=== PATIENT | female | born 1965 | race Caucasian/White ===

== ENCOUNTER 2016-05-11 07:30 | Day surgery (SDC) | payer OTHER ==
[2016-05-06 16:17] VITALS: BMI 50.8
[~2016-05-11 07:30] MED LIST: LACTATED RINGERS 1,000 ML IV SCH
[2016-05-11 08:12] VITALS: RESP 16; TEMP 97.1
[2016-05-11] MEDS ORDERED: PROPOFOL 10 MG/ML 20 ML VIAL IV ONE (08:14)
[2016-05-11 08:24] LABS: Glucose,Whole Blood 210 mg/dL (75-99)
--- NOTE | 2016-05-11 08:33 | P.PCN ---
Date of Procedure: 05/11/16 Procedure(s) Performed: BRIEF HISTORY: Patient is a 50-year-old pleasant white female, scheduled for an elective colonoscopy as a part of evaluation of chronic diarrhea of several years duration. She was on history of irritable bowel syndrome in the past. She also has family history of colon cancer diagnosed in her grandfather at age 60. PROCEDURE PERFORMED: Colonoscopy. PREOPERATIVE DIAGNOSIS: Chronic diarrhea. IV sedation per Anesthesia. PROCEDURE: After informed consent was obtained, the patient, was brought into the endoscopy unit. IV conscious sedation was administered by Anesthesia under continuous monitoring. Digital rectal examination was normal. Initially the Olympus CF-160 flexible video colonoscope was then inserted in the rectum, gradually advanced into the cecum without any difficulty. Careful examination was performed as the scope was gradually being withdrawn. Ileocecal valve and the appendiceal orifice were visualized and appeared normal. Prep was excellent. Mucosa of the cecum, ascending colon, transverse colon, descending colon, sigmoid colon, and rectum appeared normal. Retroflexion was performed in the rectum and no lesions were seen. The patient tolerated the procedure well. IMPRESSION: Normal-appearing colon from rectum to cecum with no evidence of colorectal neoplasia. RECOMMENDATIONS: Findings of this examination were discussed with the patient as well as a family. She was advised to have a repeat screening colonoscopy in 5 years because of the family history of colon cancer..
[2016-05-11 09:03] VITALS: PULSE 88
[2016-05-11 09:24] VITALS: BP 92/62
[2016-05-11 09:33] LABS: Glucose,Whole Blood 216 mg/dL (75-99)
== END 2016-05-11 09:46 | disposition home or self-care (01) ==
LOC: ORWHC2ENDO 07:30
PROVIDERS: ATTEND Internal Medicine Gastroenterology
DX: K52.9 Noninfective gastroenteritis and colitis, unspecified (principal); I10 Essential (primary) hypertension; E78.5 Hyperlipidemia, unspecified; I25.10 Atherosclerotic heart disease of native coronary artery without angina pectoris; G47.33 Obstructive sleep apnea (adult) (pediatric); E11.9 Type 2 diabetes mellitus without complications; M79.7 Fibromyalgia; Z88.2 Allergy status to sulfonamides; Z79.4 Long term (current) use of insulin; Z79.82 Long term (current) use of aspirin; Z79.84 Long term (current) use of oral hypoglycemic drugs; Z79.899 Other long term (current) drug therapy; Z80.0 Family history of malignant neoplasm of digestive organs
CPT/HCPCS: 45378; J2704; 99153

== ENCOUNTER → 2016-09-27 | Outpatient (CLI) | payer OTHER ==
--- NOTE | 2016-09-29 08:49 | MM ---
Reason for exam: screening (asymptomatic). Last mammogram was performed 3 years and 9 months ago. History: Patient is postmenopausal. Physical Findings: A clinical breast exam by your physician is recommended on an annual basis and results should be correlated with mammographic findings. MG Screening Mammo w CAD Bilateral CC and MLO view(s) were taken. XCCL view(s) were taken of the right breast. Prior study comparison: December 20, 2012, bilateral digital screening mammo w/CAD. December 20, 2011, bilateral digital screening mammo w/CAD. There are scattered fibroglandular densities. There is chronic nodularity in the right breast. No significant changes when compared with prior studies. ASSESSMENT: Negative, BI-RAD 1 RECOMMENDATION: Routine screening mammogram of both breasts in 1 year.
== END | disposition home or self-care (01) ==
LOC: RADMAMWWP 14:42
PROVIDERS: ATTEND Family Medicine
DX: Z12.31 Encounter for screening mammogram for malignant neoplasm of breast (principal)

== ENCOUNTER → 2017-06-27 | Outpatient (CLI) | payer BC ==
--- NOTE | 2017-06-27 12:15 | XR ---
EXAMINATION TYPE: XR ribs RT DATE OF EXAM: 06/27/2017 CLINICAL HISTORY: Pain, Fall Four views of the ribs fail demonstrate evidence for acute displaced rib fracture . Healed right 5th rib fracture.Visualized lungs are clear. No evidence for pneumothorax. IMPRESSION: 1. No acute displaced rib fractures seen. ICD 10 NO FRACTURE, INITIAL EVALUATION
== END | disposition home or self-care (01) ==
LOC: RADXRMAIN 10:49
PROVIDERS: ATTEND Family Medicine
DX: T79.9XXD Unspecified early complication of trauma, subsequent encounter (principal)

== ENCOUNTER 2020-02-05 16:48 | Emergency (ER) | payer BC ==
[2020-02-05] MEDS ORDERED: SODIUM CHLORIDE 0.9% 1,000 ML IV STA (18:39)
[2020-02-05] MEDS ORDERED: ONDANSETRON 4 MG/2 ML VIAL IVP STA (18:39)
--- NOTE | 2020-02-05 18:41 | ED ---
General Adult HPI - General Chief complaint: Nausea/Vomiting/Diarrhea Stated complaint: Weak/nausea/Vomiting Time Seen by Provider: 02/05/20 18:21 Source: patient, RN notes reviewed Mode of arrival: wheelchair Limitations: no limitations - History of Present Illness Initial comments: 54-year-old female with a past medical history of diabetes mellitus, f ibromyalgia, GERD, hyperlipidemia presents to the emergency room for chief complaint of nausea vomiting diarrhea. Patient states for 2 days she has having nausea vomiting. She reports that she is having diarrhea as well. Denies bloody diarrhea. Vomiting is nonbilious and nonbloody. Patient is denying any abdominal pain associated with these symptoms whatsoever. Denies fevers or chills. Patient was tested for Covid yesterday. Results are pending. No other symptoms.Patient has no other complaints at this time including shortness of breath, chest pain, abdominal pain, nausea or vomiting, headache, or visual changes. - Related Data Home Medications Medication Instructions Recorded Confirmed Hyoscyamine Sulfate [Levbid] 0.375 mg PO BID 07/25/13 02/05/20 Pregabalin [Lyrica] 200 mg PO BID 07/25/13 02/05/20 Furosemide [Lasix] 20 mg PO DAILY 05/06/16 02/05/20 Amitriptyline HCl [Elavil] 25 mg PO HS 02/05/20 02/05/20 Aspirin [Talala Aspirin EC] 81 mg PO DAILY 02/05/20 02/05/20 Dapagliflozin Propanediol [Farxiga] 10 mg PO DAILY 02/05/20 02/05/20 Dulaglutide [Trulicity] 1.5 mg SQ SA 02/05/20 02/05/20 Insulin Glargine,Hum.rec.anlog 75 unit SQ HS 02/05/20 02/05/20 [Basaglar Kwikpen U-100] Metoprolol Succinate [Toprol XL] 50 mg PO DAILY 02/05/20 02/05/20 Motofen 1-0.025 1 tab PO BID 02/05/20 02/05/20 Ondansetron HCl [Zofran] 4 mg PO TID PRN 02/05/20 02/05/20 Potassium Chloride [Klor-Con 10] 10 meq PO DAILY 02/05/20 02/05/20 glipiZIDE [Glucotrol] 5 mg PO BID 02/05/20 02/05/20 metFORMIN HCL [Glucophage] 1,000 mg PO BID 02/05/20 02/05/20 Previous Rx's Medication Instructions Recorded Ondansetron [Zofran ODT] 4 mg PO Q8HR PRN #15 tab 02/05/20 Allergies Allergy/AdvReac Type Severity Reaction Status Date / Time Sulfa (Sulfonamide Allergy Rash/Hives Verified 02/05/20 20:23 Antibiotics) Review of Systems ROS Statement: Those systems with pertinent positive or pertinent negative responses have been documented in the HPI. ROS Other: All systems not noted in ROS Statement are negative. Past Medical History Past Medical History: Chest Pain / Angina, Diabetes Mellitus, Fibromyalgia, GERD/Reflux, Hyperlipidemia, Sleep Apnea/CPAP/BIPAP Additional Past Medical History / Comment(s): HX OF ARRYTHMIA, Hx. IBS History of Any Multi-Drug Resistant Organisms: None Reported Past Surgical History: Bladder Surgery, Cholecystectomy, Hysterectomy, Tubal Ligation, Uterine Ablation Additional Past Surgical History / Comment(s): BLADDER SLING SX Past Anesthesia/Blood Transfusion Reactions: No Reported Reaction Additional Past Anesthesia/Blood Transfusion Reaction / Comment(s): . Past Psychological History: Anxiety Past Alcohol Use History: None Reported Past Drug Use History: None Reported - Past Family History Father Family Medical History: Congestive Heart Failure (CHF), Diabetes Mellitus Additional Family Medical History / Comment(s): AT AGE 69 Mother Family Medical History: Deep Vein Thrombosis (DVT), Myocardial Infarction ([place]) Additional Family Medical History / Comment(s): AT AGE 69 General Exam Limitations: no limitations General appearance: alert, in no apparent distress Head exam: Present: atraumatic, normocephalic, normal inspection Eye exam: Present: normal appearance, PERRL, EOMI. Absent: scleral icterus, conjunctival injection, periorbital swelling ENT exam: Present: normal exam, mucous membranes moist Neck exam: Present: normal inspection, full ROM. Absent: tenderness, meningismus, lymphadenopathy Respiratory exam: Present: normal lung sounds bilaterally. Absent: respiratory distress, wheezes, rales, rhonchi, stridor Cardiovascular Exam: Present: regular rate, normal rhythm, normal heart sounds. Absent: systolic murmur, diastolic murmur, rubs, gallop, clicks GI/Abdominal exam: Present: soft, normal bowel sounds. Absent: distended, tenderness, guarding, rebound, rigid Back exam: Absent: CVA tenderness (R), CVA tenderness (L) Neurological exam: Present: alert Course Vital Signs 02/05/20 02/05/20 17:00 20:00 Temperature 98.7 F Pulse Rate 93 98 Respiratory 16 19 Rate Blood Pressure 107/71 110/55 O2 Sat by Pulse 97 97 Oximetry Medical Decision Making - Medical Decision Making Vitals are stable. The patient is well-appearing. No vomiting in the emergency room. Nontender abdomen. CBC CMP unremarkable. Mild hyperglycemia however patient does have a history of diabetes. Minimal transaminitis which is chronic according to previous labs. I was unable to obtain a urinalysis as patient missed the hat. However she denies any urinary symptoms or fevers. COVID PCR pending. Patient reevaluated after fluids and Zofran. She is requesting discharge. Feels much better. Given symptoms of nausea vomiting and diarrhea without abdominal pain patient likely has a viral gastroenteritis. However I did discuss that if she has any worsening symptoms such as abdominal tenderness or fever she needs to return to the emergency room and she is agreeable to this. She will otherwise follow-up with her doctor. - Lab Data Result diagrams: 02/05/20 18:44 02/05/20 18:44 Lab Results 02/05/20 02/05/20 Range/Units 18:44 18:44 WBC 7.5 (3.8-10.6) k/uL RBC 4.77 (3.80-5.40) m/uL Hgb 15.7 (11.4-16.0) gm/dL Hct 45.6 (34.0-46.0) % MCV 95.6 (80.0-100.0) fL MCH 32.8 (25.0-35.0) pg MCHC 34.3 (31.0-37.0) g/dL RDW 12.2 (11.5-15.5) % Plt Count 269 (150-450) k/uL MPV 6.9 Neutrophils % 70 % Lymphocytes % 22 % Monocytes % 5 % Eosinophils % 0 % Basophils % 2 % Neutrophils # 5.2 (1.3-7.7) k/uL Lymphocytes # 1.6 (1.0-4.8) k/uL Monocytes # 0.4 (0-1.0) k/uL Eosinophils # 0.0 (0-0.7) k/uL Basophils # 0.1 (0-0.2) k/uL Sodium 136 L (137-145) mmol/L Potassium 4.0 (3.5-5.1) mmol/L Chloride 104 (98-107) mmol/L Carbon Dioxide 25 (22-30) mmol/L Anion Gap 7 mmol/L BUN 12 (7-17) mg/dL Creatinine 0.71 (0.52-1.04) mg/dL Est GFR (CKD-EPI)AfAm >90 (>60 ml/min/1.73 sqM) Est GFR (CKD-EPI)NonAf >90 (>60 ml/min/1.73 sqM) Glucose 196 H (74-99) mg/dL Calcium 8.7 (8.4-10.2) mg/dL Total Bilirubin 0.6 (0.2-1.3) mg/dL AST 67 H (14-36) U/L ALT 52 H (4-34) U/L Alkaline Phosphatase 98 (38-126) U/L Total Protein 6.8 (6.3-8.2) g/dL Albumin 3.8 (3.5-5.0) g/dL Amylase 35 (30-110) U/L Lipase 51 (23-300) U/L Disposition Clinical Impression: Nausea vomiting and diarrhea Disposition: HOME SELF-CARE Condition: Good Instructions (If sedation given, give patient instructions): Acute Nausea and Vomiting (ED), Acute Diarrhea (ED) Additional Instructions: Take Zofran as needed for nausea. Drink plenty of fluids. Follow-up with your doctor. If you have any worsening symptoms return to the emergency room. Prescriptions: Ondansetron [Zofran ODT] 4 mg PO Q8HR PRN #15 tab PRN Reason: Nausea Is patient prescribed a controlled substance at d/c from ED?: No Referrals: Danae Greco DO [Primary Care Provider] - 1-2 days Time of Disposition: 21:21
[2020-02-05 19:00] LABS: Basophils # (A) 0.1 k/uL (0-0.2); Basophils % (A) 2 %; Eosinophils % (A) 0 %; HCT 45.6 % (34.0-46.0); HGB 15.7 gm/dL (11.4-16.0); Lymphocytes # (A) 1.6 k/uL (1.0-4.8); Lymphocytes % (A) 22 %; MCH 32.8 pg (25.0-35.0); MCHC 34.3 g/dL (31.0-37.0); MCV 95.6 fL (80.0-100.0); Mean Platelet Volume 6.9; Monocytes # (A) 0.4 k/uL (0-1.0); Monocytes % (A) 5 %; Neutrophils # (A) 5.2 k/uL (1.3-7.7); Neutrophils % (A) 70 %; Platelet Count 269 k/uL (150-450); RBC 4.77 m/uL (3.80-5.40); RDW 12.2 % (11.5-15.5); WBC 7.5 k/uL (3.8-10.6)
[2020-02-05 19:19] LABS: ALT 52 U/L (4-34); AST 67 U/L (14-36); African American GFR (CKD) >90 (>60 ml/min/1.73 sqM); Albumin 3.8 g/dL (3.5-5.0); Alkaline Phosphatase 98 U/L (38-126); Amylase 35 U/L (30-110); Anion Gap 7 mmol/L; Blood Urea Nitrogen 12 mg/dL (7-17); Calcium 8.7 mg/dL (8.4-10.2); Carbon Dioxide 25 mmol/L (22-30); Chloride 104 mmol/L (98-107); Glucose 196 mg/dL (74-99); Lipase 51 U/L (23-300); Non-African American GFR(CKD) >90 (>60 ml/min/1.73 sqM); Sodium 136 mmol/L (137-145); Total Bilirubin 0.6 mg/dL (0.2-1.3); Total Protein 6.8 g/dL (6.3-8.2)
[2020-02-05 21:00] VITALS: RESP 19
[2020-02-05 22:00] VITALS: BP 129/68; PULSE 86; TEMP 99
== END 2020-02-05 21:20 | disposition home or self-care (01) ==
LOC: EC 16:48
DX: R11.2 Nausea with vomiting, unspecified (principal); R19.7 Diarrhea, unspecified; F41.9 Anxiety disorder, unspecified; K21.9 Gastro-esophageal reflux disease without esophagitis; E78.5 Hyperlipidemia, unspecified; G47.33 Obstructive sleep apnea (adult) (pediatric); E11.65 Type 2 diabetes mellitus with hyperglycemia; M79.7 Fibromyalgia; Z79.82 Long term (current) use of aspirin; Z79.4 Long term (current) use of insulin; Z79.899 Other long term (current) drug therapy; Z99.89 Dependence on other enabling machines and devices; Z88.2 Allergy status to sulfonamides; Z90.49 Acquired absence of other specified parts of digestive tract; Z90.710 Acquired absence of both cervix and uterus; Z98.51 Tubal ligation status
CPT/HCPCS: 36415; 80053; 82150; 83690; 85025; 99284; 96374; 96361 ×2; J2405

== ENCOUNTER 2020-02-06 02:08 | Observation (INO) | payer BC ==
[2020-02-06] MEDS ORDERED: SODIUM CHLORIDE 0.9% 1,000 ML IV STA ×2 (02:32)
[2020-02-06] MEDS ORDERED: SODIUM CHLORIDE 0.9% 500 ML 500 ML IV STA (02:32)
[2020-02-06] MEDS ORDERED: PANTOPRAZOLE 40 MG/10 ML VIAL IVP STA (02:32)
[2020-02-06] MEDS ORDERED: ONDANSETRON 4 MG/2 ML VIAL IVP PRN (02:39)
[2020-02-06] MEDS ORDERED: ONDANSETRON 4 MG/2 ML VIAL IVP STA (02:39)
[2020-02-06] MEDS ORDERED: MORPHINE SULFATE 4 MG/ML SYRINGE IVP PRN (02:39)
[2020-02-06] MEDS ORDERED: MORPHINE SULFATE 4 MG/ML SYRINGE IVP STA (02:39)
--- NOTE | 2020-02-06 02:45 | ED ---
Recheck HPI - General Chief Complaint: Nausea/Vomiting/Diarrhea Stated Complaint: Diarrhea Time Seen by Provider: 02/06/20 02:17 Source: patient, RN notes reviewed, old records reviewed Mode of arrival: ambulatory Limitations: no limitations - History of Present Illness Initial Comments: This is a 54-year-old female who is presented to [facility] for evaluation she presents today for evaluation of persistent nausea vomiting and diarrhea does not feel well with fever. Other than that no shortness of breath or chest pain. She does not feel well symptoms seem to be progressing MD Complaint: abnormal lab, other (Persistent fever with nausea vomiting) -: days(s) Returns Today for: persistent/worsening pain related to initial visit Symptoms Since Prior Visit: worsening pain Associated Symptoms: fever, malaise, nausea, abdominal pain Treatments Prior to Arrival: other medications, Given Pain Meds on - Related Data Home Medications Medication Instructions Recorded Confirmed Hyoscyamine Sulfate [Levbid] 0.375 mg PO BID 07/25/13 02/06/20 Pregabalin [Lyrica] 200 mg PO BID 07/25/13 02/06/20 Furosemide [Lasix] 20 mg PO DAILY 05/06/16 02/06/20 Amitriptyline HCl [Elavil] 25 mg PO HS 02/05/20 02/06/20 Aspirin [Ceiba Aspirin EC] 81 mg PO DAILY 02/05/20 02/06/20 Dapagliflozin Propanediol [Farxiga] 10 mg PO DAILY 02/05/20 02/06/20 Dulaglutide [Trulicity] 1.5 mg SQ SA 02/05/20 02/06/20 Insulin Glargine,Hum.rec.anlog 75 unit SQ HS 02/05/20 02/06/20 [Basaglar Kwikpen U-100] Metoprolol Succinate [Toprol XL] 50 mg PO DAILY 02/05/20 02/06/20 Motofen 1-0.025 1 tab PO BID 02/05/20 02/06/20 Ondansetron HCl [Zofran] 4 mg PO TID PRN 02/05/20 02/06/20 Potassium Chloride [Klor-Con 10] 10 meq PO DAILY 02/05/20 02/06/20 glipiZIDE [Glucotrol] 5 mg PO BID 02/05/20 02/06/20 metFORMIN HCL [Glucophage] 1,000 mg PO BID 02/05/20 02/06/20 Previous Rx's Medication Instructions Recorded Ondansetron [Zofran ODT] 4 mg PO Q8HR PRN #15 tab 02/05/20 Allergies Allergy/AdvReac Type Severity Reaction Status Date / Time Sulfa (Sulfonamide Allergy Rash/Hives Verified 02/06/20 02:16 Antibiotics) Review of Systems ROS Statement: Those systems with pertinent positive or pertinent negative responses have been documented in the HPI. ROS Other: All systems not noted in ROS Statement are negative. Past Medical History Past Medical History: Chest Pain / Angina, Diabetes Mellitus, Fibromyalgia, GERD/Reflux, Hyperlipidemia, Sleep Apnea/CPAP/BIPAP Additional Past Medical History / Comment(s): HX OF ARRYTHMIA, Hx. IBS History of Any Multi-Drug Resistant Organisms: None Reported Past Surgical History: Bladder Surgery, Cholecystectomy, Hysterectomy, Tubal Ligation, Uterine Ablation Additional Past Surgical History / Comment(s): BLADDER SLING SX Past Anesthesia/Blood Transfusion Reactions: No Reported Reaction Additional Past Anesthesia/Blood Transfusion Reaction / Comment(s): . Past Psychological History: Anxiety Smoking Status: Never smoker Past Alcohol Use History: None Reported Past Drug Use History: None Reported - Past Family History Father Family Medical History: Congestive Heart Failure (CHF), Diabetes Mellitus Additional Family Medical History / Comment(s): AT AGE 69 Mother Family Medical History: Deep Vein Thrombosis (DVT), Myocardial Infarction ([place]) Additional Family Medical History / Comment(s): AT AGE 69 General Exam Limitations: no limitations General appearance: alert, in no apparent distress, obese Head exam: Present: atraumatic, normocephalic, normal inspection Eye exam: Present: normal appearance, PERRL, EOMI. Absent: scleral icterus, conjunctival injection, periorbital swelling ENT exam: Present: normal exam, mucous membranes moist Neck exam: Present: normal inspection. Absent: tenderness, meningismus, lymphadenopathy Respiratory exam: Present: normal lung sounds bilaterally. Absent: respiratory distress, wheezes, rales, rhonchi, stridor Cardiovascular Exam: Present: regular rate, normal rhythm, normal heart sounds. Absent: systolic murmur, diastolic murmur, rubs, gallop, clicks GI/Abdominal exam: Present: soft, normal bowel sounds. Absent: distended, tenderness, guarding, rebound, rigid Extremities exam: Present: normal inspection, full ROM, normal capillary refill. Absent: tenderness, pedal edema, joint swelling, calf tenderness Back exam: Present: normal inspection Neurological exam: Present: alert, oriented X3, CN II-XII intact Psychiatric exam: Present: normal affect, normal mood Skin exam: Present: warm, dry, intact, normal color. Absent: rash Course Vital Signs 02/06/20 02/06/20 02/06/20 02:11 03:12 03:26 Temperature 98.7 F 99.7 F H Pulse Rate 101 H 98 Respiratory 24 18 Rate Blood Pressure 111/74 108/72 O2 Sat by Pulse 99 94 L Oximetry 02/06/20 04:21 Temperature Pulse Rate 99 Respiratory 18 Rate Blood Pressure 120/72 O2 Sat by Pulse 99 Oximetry - Reevaluation(s) Reevaluation #1: Medical record and ear visit from yesterday are reviewed Patient does not feel well, maybe mildly improved with symptom management Spoke patient regarding findings and questions have been answered Medical Decision Making - Medical Decision Making 54 female positive coronavirus, abdominal pain with nausea vomiting. Patient be admitted for continued monitoring of symptoms - Lab Data Result diagrams: 02/06/20 03:05 02/06/20 03:05 Lab Results 02/06/20 02/06/20 02/06/20 Range/Units 03:05 03:05 03:05 WBC 7.3 (3.8-10.6) k/uL RBC 4.50 (3.80-5.40) m/uL Hgb 14.4 (11.4-16.0) gm/dL Hct 42.4 (34.0-46.0) % MCV 94.4 (80.0-100.0) fL MCH 32.1 (25.0-35.0) pg MCHC 34.0 (31.0-37.0) g/dL RDW 12.7 (11.5-15.5) % Plt Count 262 (150-450) k/uL MPV 6.9 Neutrophils % 73 % Lymphocytes % 20 % Monocytes % 5 % Eosinophils % 1 % Basophils % 0 % Neutrophils # 5.4 (1.3-7.7) k/uL Lymphocytes # 1.4 (1.0-4.8) k/uL Monocytes # 0.4 (0-1.0) k/uL Eosinophils # 0.1 (0-0.7) k/uL Basophils # 0.0 (0-0.2) k/uL PT 9.7 (9.0-12.0) sec INR 0.9 (<1.2) APTT 21.3 L (22.0-30.0) sec Sodium 134 L (137-145) mmol/L Potassium 4.1 (3.5-5.1) mmol/L Chloride 102 (98-107) mmol/L Carbon Dioxide 27 (22-30) mmol/L Anion Gap 5 mmol/L BUN 13 (7-17) mg/dL Creatinine 0.74 (0.52-1.04) mg/dL Est GFR (CKD-EPI)AfAm >90 (>60 ml/min/1.73 sqM) Est GFR (CKD-EPI)NonAf >90 (>60 ml/min/1.73 sqM) Glucose 242 H (74-99) mg/dL Plasma Lactic Acid Russ (0.7-2.0) mmol/L Calcium 8.3 L (8.4-10.2) mg/dL Phosphorus 3.1 (2.5-4.5) mg/dL Magnesium 1.9 (1.6-2.3) mg/dL Ferritin 269.7 (10.0-291.0) ng/mL Total Bilirubin 0.6 (0.2-1.3) mg/dL AST 63 H (14-36) U/L ALT 46 H (4-34) U/L Alkaline Phosphatase 85 (38-126) U/L Lactate Dehydrogenase 659 H (313-618) U/L Creatine Kinase 101 (30-135) U/L Troponin I (0.000-0.034) ng/mL C-Reactive Protein 35.6 H (<10.0) mg/L NT-Pro-B Natriuret Pep pg/mL Total Protein 6.4 (6.3-8.2) g/dL Albumin 3.4 L (3.5-5.0) g/dL Coronavirus (PCR) (Not Detectd) 02/06/20 02/06/20 02/06/20 Range/Units 03:05 03:05 03:05 WBC (3.8-10.6) k/uL RBC (3.80-5.40) m/uL Hgb (11.4-16.0) gm/dL Hct (34.0-46.0) % MCV (80.0-100.0) fL MCH (25.0-35.0) pg MCHC (31.0-37.0) g/dL RDW (11.5-15.5) % Plt Count (150-450) k/uL MPV Neutrophils % % Lymphocytes % % Monocytes % % Eosinophils % % Basophils % % Neutrophils # (1.3-7.7) k/uL Lymphocytes # (1.0-4.8) k/uL Monocytes # (0-1.0) k/uL Eosinophils # (0-0.7) k/uL Basophils # (0-0.2) k/uL PT (9.0-12.0) sec INR (<1.2) APTT (22.0-30.0) sec Sodium (137-145) mmol/L Potassium (3.5-5.1) mmol/L Chloride (98-107) mmol/L Carbon Dioxide (22-30) mmol/L Anion Gap mmol/L BUN (7-17) mg/dL Creatinine (0.52-1.04) mg/dL Est GFR (CKD-EPI)AfAm (>60 ml/min/1.73 sqM) Est GFR (CKD-EPI)NonAf (>60 ml/min/1.73 sqM) Glucose (74-99) mg/dL Plasma Lactic Acid Russ 1.4 (0.7-2.0) mmol/L Calcium (8.4-10.2) mg/dL Phosphorus (2.5-4.5) mg/dL Magnesium (1.6-2.3) mg/dL Ferritin (10.0-291.0) ng/mL Total Bilirubin (0.2-1.3) mg/dL AST (14-36) U/L ALT (4-34) U/L Alkaline Phosphatase (38-126) U/L Lactate Dehydrogenase (313-618) U/L Creatine Kinase (30-135) U/L Troponin I <0.012 (0.000-0.034) ng/mL C-Reactive Protein (<10.0) mg/L NT-Pro-B Natriuret Pep 109 pg/mL Total Protein (6.3-8.2) g/dL Albumin (3.5-5.0) g/dL Coronavirus (PCR) (Not Detectd) 02/06/20 Range/Units 03:26 WBC (3.8-10.6) k/uL RBC (3.80-5.40) m/uL Hgb (11.4-16.0) gm/dL Hct (34.0-46.0) % MCV (80.0-100.0) fL MCH (25.0-35.0) pg MCHC (31.0-37.0) g/dL RDW (11.5-15.5) % Plt Count (150-450) k/uL MPV Neutrophils % % Lymphocytes % % Monocytes % % Eosinophils % % Basophils % % Neutrophils # (1.3-7.7) k/uL Lymphocytes # (1.0-4.8) k/uL Monocytes # (0-1.0) k/uL Eosinophils # (0-0.7) k/uL Basophils # (0-0.2) k/uL PT (9.0-12.0) sec INR (<1.2) APTT (22.0-30.0) sec Sodium (137-145) mmol/L Potassium (3.5-5.1) mmol/L Chloride (98-107) mmol/L Carbon Dioxide (22-30) mmol/L Anion Gap mmol/L BUN (7-17) mg/dL Creatinine (0.52-1.04) mg/dL Est GFR (CKD-EPI)AfAm (>60 ml/min/1.73 sqM) Est GFR (CKD-EPI)NonAf (>60 ml/min/1.73 sqM) Glucose (74-99) mg/dL Plasma Lactic Acid Russ (0.7-2.0) mmol/L Calcium (8.4-10.2) mg/dL Phosphorus (2.5-4.5) mg/dL Magnesium (1.6-2.3) mg/dL Ferritin (10.0-291.0) ng/mL Total Bilirubin (0.2-1.3) mg/dL AST (14-36) U/L ALT (4-34) U/L Alkaline Phosphatase (38-126) U/L Lactate Dehydrogenase (313-618) U/L Creatine Kinase (30-135) U/L Troponin I (0.000-0.034) ng/mL C-Reactive Protein (<10.0) mg/L NT-Pro-B Natriuret Pep pg/mL Total Protein (6.3-8.2) g/dL Albumin (3.5-5.0) g/dL Coronavirus (PCR) Detected A (Not Detectd) - EKG Data -: EKG Interpreted by Me (EKG shows sinus rhythm 94 MA 144 QRS 86 QTc 492) - Radiology Data Radiology results: report reviewed (X-ray abdominal series with chest is negative for acute disease), image reviewed Disposition Clinical Impression: Nausea vomiting and diarrhea, Coronavirus infection, COVID-19 Disposition: ADMITTED IP TO THIS HOSP Condition: Fair Is patient prescribed a controlled substance at d/c from ED?: No
[2020-02-06 03:20] LABS: Basophils % (A) 0 %; Eosinophils # (A) 0.1 k/uL (0-0.7); Eosinophils % (A) 1 %; HCT 42.4 % (34.0-46.0); HGB 14.4 gm/dL (11.4-16.0); Lymphocytes # (A) 1.4 k/uL (1.0-4.8); Lymphocytes % (A) 20 %; MCH 32.1 pg (25.0-35.0); MCV 94.4 fL (80.0-100.0); Mean Platelet Volume 6.9; Monocytes # (A) 0.4 k/uL (0-1.0); Monocytes % (A) 5 %; Neutrophils # (A) 5.4 k/uL (1.3-7.7); Neutrophils % (A) 73 %; Platelet Count 262 k/uL (150-450); RDW 12.7 % (11.5-15.5); WBC 7.3 k/uL (3.8-10.6)
[2020-02-06] MEDS ORDERED: diphenhydrAMINE 50 MG/ML 1 ML VIAL IVP PRN (03:30)
[2020-02-06] MEDS ORDERED: METOCLOPRAMIDE 5 MG/ML 2 ML VIAL IVP PRN (03:30)
[2020-02-06 03:34] LABS: ALT 46 U/L (4-34); AST 63 U/L (14-36); African American GFR (CKD) >90 (>60 ml/min/1.73 sqM); Albumin 3.4 g/dL (3.5-5.0); Alkaline Phosphatase 85 U/L (38-126); Anion Gap 5 mmol/L; Blood Urea Nitrogen 13 mg/dL (7-17); C Reactive Protein 35.6 mg/L (<10.0); Calcium 8.3 mg/dL (8.4-10.2); Carbon Dioxide 27 mmol/L (22-30); Chloride 102 mmol/L (98-107); Creatine Kinase 101 U/L (30-135); Glucose 242 mg/dL (74-99); LDH 659 U/L (313-618); Magnesium 1.9 mg/dL (1.6-2.3); Non-African American GFR(CKD) >90 (>60 ml/min/1.73 sqM); Phosphorus 3.1 mg/dL (2.5-4.5); Potassium 4.1 mmol/L (3.5-5.1); Sodium 134 mmol/L (137-145); Total Bilirubin 0.6 mg/dL (0.2-1.3); Total Protein 6.4 g/dL (6.3-8.2)
[2020-02-06 03:46] LABS: INR 0.9 (<1.2); Prothrombin Time 9.7 sec (9.0-12.0)
[2020-02-06 03:47] LABS: Partial Thromboplastin Time 21.3 sec (22.0-30.0)
[2020-02-06 06:48] LABS: Appearance,Urine Clear (Clear); Bacteria,Urine Many /hpf; Bilirubin,Urine Negative (Negative); Blood,Urine Negative (Negative); Color,Urine Yellow; Glucose,Urine (UA) Negative (Negative); Ketones,Urine Negative (Negative); Leukocyte Esterase,Urine Trace (Negative); Mucus,Urine Rare /hpf; Nitrite,Urine Positive (Negative); Protein,Urine Negative (Negative); RBC,Urine <1 /hpf (0-5); Specific Gravity,Urine 1.009 (1.001-1.035); Squamous Epithelial Cell,Urine 2 /hpf (0-4); Urobilinogen,Urine <2.0 mg/dL (<2.0); WBC,Urine 5 /hpf (0-5)
[2020-02-06 07:19] LABS: Glucose,Whole Blood 170 mg/dL (75-99)
--- NOTE | 2020-02-06 08:44 | XR ---
EXAMINATION TYPE: XR abdomen acute w cxr DATE OF EXAM: 02/06/2020 COMPARISON: None HISTORY: Nausea vomiting diarrhea TECHNIQUE: Supine and upright views the abdomen supplemented with a frontal chest FINDINGS: Heart size is mildly prominent. Pulmonary vasculature is somewhat prominent. Mild increased lung markings may be in the left lower lobe. Correlate for volume overload and atypical pulmonary ed simran. No free air is under the diaphragm Nonspecific bowel gas is present with nondilated air-filled small bowel loops as well as colon. No ma ss effect is evident. Psoas margins are normal. Organomegaly is not evident. Cholecystectomy clips ar e in the right upper quadrant. Punctate radiopaque foreign body overlies the L2-L3 disc level on the frontal projection IMPRESSION: 1. Clinical correlation recommended for mild congestive heart failure. Follow-up can be performed as clinically indicated. 2. Nonspecific abdomen
[2020-02-06] MEDS: INSULIN ASPART (NovoLOG) 100 UNIT/ML VIAL SQ SCH ×4 (08:53→21:05)
[2020-02-06] MEDS: ENOXAPARIN 40 MG/0.4 ML SYRINGE SQ SCH (08:53)
[2020-02-06] MEDS ORDERED: ACETAMINOPHEN TAB 500 MG TAB PO PRN (09:03)
[2020-02-06] MEDS ORDERED: ONDANSETRON ODT 4 MG TAB PO PRN (11:11)
[2020-02-06] MEDS ORDERED: ONDANSETRON 4 MG TAB PO PRN (11:11)
[2020-02-06 11:41] LABS: Glucose,Whole Blood 158 mg/dL (75-99)
[2020-02-06] MEDS: dexAMETHasone 2 MG TAB PO SCH (13:23)
[2020-02-06] MEDS: ZINC SULFATE 220 MG CAP PO SCH (13:23)
[2020-02-06 15:13] LABS: Ferritin 269.7 ng/mL (10.0-291.0)
--- NOTE | 2020-02-06 15:13 | P.HPIM ---
History of Present Illness Patient is a pleasant the 54-year-old female came in with complaints of nausea vomiting diarrhea along with fevers and myalgias has been going on for about the of the patient was also having some cough without any significant sputum production doesn't have much of respiratory symptoms. Patient is found to have Covid 19. Chest x-ray showing interstitial infiltrate patient diarrhea improved patient received IV fluids since last night. Patient is on Decadron now and infectious disease was consulted. Review of Systems REVIEW OF SYSTEMS: CONSTITUTIONAL: As mentioned in HPI HEENT: No recent visual problems or hearing problems. Denied any sore throat. CARDIOVASCULAR: No chest pain, orthopnea, PND, no palpitations, no syncope. PULMONARY: No shortness of breath, no cough, no hemoptysis. GASTROINTESTINAL: As mentioned in HPI NEUROLOGICAL: No headaches, no weakness, no numbness. HEMATOLOGICAL: Denies any bleeding or petechiae. GENITOURINARY: Denies any burning micturition, frequency, or urgency. MUSCULOSKELETAL/RHEUMATOLOGICAL: Denies any joint pain, swelling, or any muscle pain. ENDOCRINE: Denies any polyuria or polydipsia. The rest of the 14-point review of systems is negative. Past Medical History Past Medical History: Chest Pain / Angina, Diabetes Mellitus, Fibromyalgia, GERD/Reflux, Hyperlipidemia, Sleep Apnea/CPAP/BIPAP Additional Past Medical History / Comment(s): HX OF ARRYTHMIA, Hx. IBS History of Any Multi-Drug Resistant Organisms: None Reported Past Surgical History: Bladder Surgery, Cholecystectomy, Hysterectomy, Tubal Ligation, Uterine Ablation Additional Past Surgical History / Comment(s): BLADDER SLING SX Past Anesthesia/Blood Transfusion Reactions: No Reported Reaction Additional Past Anesthesia/Blood Transfusion Reaction / Comment(s): . Past Psychological History: Anxiety Smoking Status: Never smoker Past Alcohol Use History: None Reported Past Drug Use History: None Reported - Past Family History Father Family Medical History: Congestive Heart Failure (CHF), Diabetes Mellitus Additional Family Medical History / Comment(s): AT AGE 69 Mother Family Medical History: Deep Vein Thrombosis (DVT), Myocardial Infarction (SD) Additional Family Medical History / Comment(s): AT AGE 69 Medications and Allergies Home Medications Medication Instructions Recorded Confirmed Type Hyoscyamine Sulfate [Levbid] 0.375 mg PO BID 07/25/13 02/06/20 History Pregabalin [Lyrica] 200 mg PO BID 07/25/13 02/06/20 History Furosemide [Lasix] 20 mg PO DAILY 05/06/16 02/06/20 History Amitriptyline HCl [Elavil] 25 mg PO HS 02/05/20 02/06/20 History Aspirin [[place] Aspirin EC] 81 mg PO DAILY 02/05/20 02/06/20 History Dapagliflozin Propanediol [Farxiga] 10 mg PO DAILY 02/05/20 02/06/20 History Dulaglutide [Trulicity] 1.5 mg SQ SA 02/05/20 02/06/20 History Insulin Glargine,Hum.rec.anlog 75 unit SQ HS 02/05/20 02/06/20 History [Basaglar Kwikpen U-100] Metoprolol Succinate [Toprol XL] 50 mg PO DAILY 02/05/20 02/06/20 History Motofen 1-0.025 1 tab PO BID 02/05/20 02/06/20 History Ondansetron HCl [Zofran] 4 mg PO TID PRN 02/05/20 02/06/20 History Ondansetron [Zofran ODT] 4 mg PO Q8HR PRN #15 tab 02/05/20 02/06/20 Rx Potassium Chloride [Klor-Con 10] 10 meq PO DAILY 02/05/20 02/06/20 History glipiZIDE [Glucotrol] 5 mg PO BID 02/05/20 02/06/20 History metFORMIN HCL [Glucophage] 1,000 mg PO BID 02/05/20 02/06/20 History Allergies Allergy/AdvReac Type Severity Reaction Status Date / Time Sulfa (Sulfonamide Allergy Rash/Hives Verified 02/06/20 02:16 Antibiotics) Physical Exam Vitals: Vital Signs Temp Pulse Pulse Resp BP BP Pulse Ox 02/06/20 05:43 100.3 F H 103 H 16 111/68 93 L 02/06/20 05:06 98.9 F 98 16 112/75 92 L 02/06/20 04:21 99 18 120/72 99 02/06/20 03:26 98 18 108/72 94 L 02/06/20 03:12 99.7 F H 02/06/20 02:11 98.7 F 101 H 24 111/74 99 Intake and Output 02/06/20 02/06/20 02/06/20 06:59 14:59 22:59 Intake Total 118 Balance 118 Intake: Oral 118 Other: # Voids 0 # Bowel Movements 0 Weight 106.594 kg PHYSICAL EXAMINATION: GENERAL: The patient is alert and oriented x3, not in any acute distress. Well developed, well nourished. HEENT: Pupils are round and equally reacting to light. EOMI. No scleral icterus. No conjunctival pallor. Normocephalic, atraumatic. No pharyngeal erythema. No thyromegaly. CARDIOVASCULAR: S1 and S2 present. No murmurs, rubs, or gallops. PULMONARY: Chest is clear to auscultation, no wheezing or crackles. ABDOMEN: Soft, nontender, nondistended, normoactive bowel sounds. No palpable organomegaly. MUSCULOSKELETAL: No joint swelling or deformity. EXTREMITIES: No cyanosis, clubbing, or pedal edema. NEUROLOGICAL: Gross neurological examination did not reveal any focal deficits. SKIN: No rashes. Note: Because of COVID 19 isolation, some of the history and physical exam findings are indirect and obtained from nursing staff, and other physician examinations to avoid unnecessary contact with the patient. Results CBC & Chem 7: 02/06/20 03:05 02/06/20 03:05 Labs: Abnormal Lab Results - Last 24 Hours (Table) 02/06/20 02/06/20 02/06/20 Range/Units 03:05 03:05 03:26 APTT 21.3 L (22.0-30.0) sec Sodium 134 L (137-145) mmol/L Glucose 242 H (74-99) mg/dL POC Glucose (mg/dL) (75-99) mg/dL Calcium 8.3 L (8.4-10.2) mg/dL AST 63 H (14-36) U/L ALT 46 H (4-34) U/L Lactate Dehydrogenase 659 H (313-618) U/L C-Reactive Protein 35.6 H (<10.0) mg/L Albumin 3.4 L (3.5-5.0) g/dL Urine Nitrite (Negative) Ur Leukocyte Esterase (Negative) Urine Bacteria (None) /hpf Urine Mucus (None) /hpf Coronavirus (PCR) Detected A (Not Detectd) 02/06/20 02/06/20 02/06/20 Range/Units 06:30 07:18 11:40 APTT (22.0-30.0) sec Sodium (137-145) mmol/L Glucose (74-99) mg/dL POC Glucose (mg/dL) 170 H 158 H (75-99) mg/dL Calcium (8.4-10.2) mg/dL AST (14-36) U/L ALT (4-34) U/L Lactate Dehydrogenase (313-618) U/L C-Reactive Protein (<10.0) mg/L Albumin (3.5-5.0) g/dL Urine Nitrite Positive H (Negative) Ur Leukocyte Esterase Trace H (Negative) Urine Bacteria Many H (None) /hpf Urine Mucus Rare H (None) /hpf Coronavirus (PCR) (Not Detectd) Thrombosis Risk Factor Assmnt - Choose All That Apply Any of the Below Risk Factors Present?: Yes Each Factor Represents 1 point: Age 41-60 years, Obesity (BMI >25), Serious lung disease incl. pneumonia (< 1month) Other Risk Factors: No Other congenital or acquired thrombophilia - If yes, enter type in comment: No Thrombosis Risk Factor Assessment Total Risk Factor Score: 3 Thrombosis Risk Factor Assessment Level: Moderate Risk Assessment and Plan Plan: -Covid 19 infection: Patient has predominately GI symptoms which presently improved patient was receiving IV fluids which is appropriate patient was on Lasix at home which will be held because of dehydration secondary to Covid 19. -Pneumonitis secondary to Covid. Patient is presently not hypoxemic but will be monitored for that. -Type 2 diabetes mellitus: Blood sugars are expected to go up because of Decadron she is receiving, patient the is on the insulin, dose of long-acting insulin will be increased and the rest of the home regimen will be continued. Next and have mild hypovolemic hyponatremia: Received IV fluids and expecting it to be improved will repeat a basic metabolic profile tomorrow -Obesity -Fibromyalgia -Gastroesophageal reflux disease -Sleep apnea and uses CPAP machine at home DVT prophylaxis with Lovenox
[2020-02-06 17:01] LABS: Glucose,Whole Blood 197 mg/dL (75-99)
[2020-02-06] MEDS: metFORMIN 500 MG TAB PO SCH (17:35)
[2020-02-06 19:43] LABS: Glucose,Whole Blood 182 mg/dL (75-99)
[2020-02-06] MEDS ORDERED: AMITRIPTYLINE HCL 25 MG TAB PO SCH (21:00)
[2020-02-06] MEDS ORDERED: INSULIN DETEMIR (LEVEMIR) 100 UNIT/ML SYR SQ SCH (21:00)
[2020-02-06] MEDS: PREGABALIN 100 MG CAP PO SCH (21:04)
[2020-02-06] MEDS: glipiZIDE 5 MG TAB PO SCH (21:04)
[2020-02-06] MEDS ORDERED: MELATONIN 3 MG TABLET PO PRN (22:18)
--- NOTE | 2020-02-07 03:17 | CONS ---
CONSULTATION DATE OF SERVICE: 02/06/2020 REASON FOR CONSULTATION: COVID-19 infection. HISTORY OF PRESENT ILLNESS: The patient is a 54-year-old female who presented to the ER early this morning for evaluation of nausea, vomiting, diarrhea along with fever and myalgias. The patient's symptoms have been going on since Monday, less than a week ago. The patient denies having any chest pain or shortness of breath. The patient did have mild cough. No sputum production. With these symptoms, the patient presented to hospital. On arrival to the ER, the patient was afebrile. Subsequently did spike a low grade fever of 100.3. The patient is currently saturating 95% on room air. The patient did have a valerio PCR that came back positive. She did have a normal white count with no lymphopenia and did have elevated liver enzymes as well as CRP. The patient did have acute abdominal series which shows clinical correlation for congestive heart failure. Nonspecific abdomen. Patient was admitted to the hospital. Infectious Disease was consulted for further management. REVIEW OF SYSTEMS: Positive points have been mentioned in HPI. Rest of systems are negative. PAST MEDICAL HISTORY: Diabetes mellitus, fibromyalgia, gastroesophageal reflux disease, hyperlipidemia, sleep apnea, arrhythmia. PAST SURGICAL HISTORY: Bladder surgery, cholecystectomy, hysterectomy, tubal ligation, uterine ablation. SOCIAL HISTORY: No history of smoking, drinking or drug use. FAMILY HISTORY: Father history of diabetes, congestive heart failure. Mother history of DVT and MO. MEDICATIONS: Medications include the patient is currently on Tylenol, Elavil, aspirin, dexamethasone, Benadryl, Lovenox, Glucotrol, NovoLog, Levemir, Glucophage, Reglan, Toprol XL, morphine sulfate, Farxiga, Zofran, Lyrica and zinc. PHYSICAL EXAMINATION: Blood pressure 107/69 with pulse of 95, temperature 98.1. She is 95% on room air. General description is a middle-aged female lying in bed in no distress. No tachypnea or accessory muscle of respiration use. HEENT: Examination shows no pallor or scleral icterus. Oral mucous membrane is dry. No pharyngeal erythema or thrush. NECK: Trachea central. No thyromegaly. LUNGS: Unlabored breathing, decreased intensity of breath sounds. No wheeze or crackle. HEART: S1, S2. Regular rate and rhythm. No added sounds. ABDOMEN: Soft, no tenderness. No guarding or rigidity. EXTREMITIES: No edema of feet. SKIN EXAMINATION: No rash or mass palpable. NEUROLOGICAL: Patient is awake, alert, oriented x3. Mood and affect normal. LABS: Hemoglobin is 14.4, white count 7.3, BUN of 13, creatinine 0.74. Liver enzymes elevated. CRP 35.6. COVID is positive. DIAGNOSTIC IMPRESSION: Patient admitted to the hospital predominantly with nausea, vomiting, diarrhea and did have minimal cough in this patient diagnosed with acute COVID-19 infection. Patient currently not hypoxic. PLAN: 1. We will recommend symptomatic treatment of her nausea, vomiting and diarrhea for which we will add Questran for symptomatic relief. 2. We will add dexamethasone, Lovenox and zinc sulfate. 3. As the patient is currently not hypoxic, would not qualify for remdesivir therapy. However, her respiratory status will be monitored closely. 4. Droplet isolation. 5. We will follow on clinical condition and further adjust medication if needed. Thank you for this consultation. Will follow this patient along with you. MMKIERSTEN / AMARILYSN: [id number] /
[2020-02-07] MEDS: INSULIN ASPART (NovoLOG) 100 UNIT/ML VIAL SQ SCH ×2 (07:22→11:45)
[2020-02-07 07:27] LABS: Glucose,Whole Blood 70 mg/dL (75-99)
[2020-02-07] MEDS: ENOXAPARIN 40 MG/0.4 ML SYRINGE SQ SCH (08:29)
[2020-02-07] MEDS: PREGABALIN 100 MG CAP PO SCH (08:30)
[2020-02-07] MEDS: glipiZIDE 5 MG TAB PO SCH (08:30)
[2020-02-07] MEDS: metFORMIN 500 MG TAB PO SCH (08:30)
[2020-02-07] MEDS: ZINC SULFATE 220 MG CAP PO SCH (08:30)
[2020-02-07] MEDS: dexAMETHasone 2 MG TAB PO SCH (08:30)
[2020-02-07] MEDS ORDERED: METOPROLOL SUCCINATE (ER) 50 MG TAB.ER.24H PO SCH (09:00)
[2020-02-07] MEDS ORDERED: ASPIRIN 81 MG PO SCH (09:00)
[2020-02-07] MEDS ORDERED: Dapagliflozin Propanediol [Farxiga] PO SCH (09:00)
[2020-02-07] MEDS ORDERED: CHOLESTYRAMINE (WITH SUGAR) 4 GM PACKET PO SCH (10:00)
[2020-02-07 10:29] LABS: African American GFR (CKD) >90 (>60 ml/min/1.73 sqM); Anion Gap 8 mmol/L; Blood Urea Nitrogen 9 mg/dL (7-17); Calcium 8.3 mg/dL (8.4-10.2); Carbon Dioxide 26 mmol/L (22-30); Chloride 108 mmol/L (98-107); Glucose 122 mg/dL (74-99); Non-African American GFR(CKD) >90 (>60 ml/min/1.73 sqM); Potassium 3.7 mmol/L (3.5-5.1); Sodium 142 mmol/L (137-145)
--- NOTE | 2020-02-07 11:09 | P.DS ---
Providers Date of admission: 02/06/20 04:17 Attending physician: Elizabeth Baron Consults: 02/06/20 04:17 Consult Physician Routine Consulting Provider: Romaine Winters Consult Reason/Comments: covid Do you want consulting provider notified?: Yes Primary care physician: Danae [place] Hospital Course: 54-year-old female came in with complaints of nausea vomiting diarrhea along with fevers and myalgias has been going on for about the of the patient was also having some cough without any significant sputum production doesn't have much of respiratory symptoms. Patient is found to have Covid 19. Chest x-ray showing interstitial infiltrate patient diarrhea improved patient received IV fluids since last night. Patient is on Decadron now and infectious disease was consulted. 02/07/2020 Patient is not hypoxic is still complaining of 3 more episodes of diarrhea today. This is probably because the of not being on hyoscyamine which she was on at home. Patient will be resumed on this medication and patient will be discharged today ration will be discharged on Decadron as recommended by infectious disease for 7 more days. Because of the diarrhea and the hyponatremia on admission I'll hold off on her Lasix upon discharge can be initiated when she follows up with PCP. PHYSICAL EXAMINATION: GENERAL: The patient is alert and oriented x3, not in any acute distress. Well developed, well nourished. HEENT: Pupils are round and equally reacting to light. EOMI. No scleral icterus. No conjunctival pallor. Normocephalic, atraumatic. No pharyngeal erythema. No thyromegaly. CARDIOVASCULAR: S1 and S2 present. No murmurs, rubs, or gallops. PULMONARY: Chest is clear to auscultation, no wheezing or crackles. ABDOMEN: Soft, nontender, nondistended, normoactive bowel sounds. No palpable organomegaly. MUSCULOSKELETAL: No joint swelling or deformity. EXTREMITIES: No cyanosis, clubbing, or pedal edema. NEUROLOGICAL: Gross neurological examination did not reveal any focal deficits. SKIN: No rashes. Note: Because of COVID 19 isolation, some of the history and physical exam findings are indirect and obtained from nursing staff, and other physician examinations to avoid unnecessary contact with the patient. Assessment and Plan Plan: -Covid 19 infection: Patient has predominately GI symptoms . was discharged today patient is not hypoxic -Pneumonitis secondary to Covid. Patient is presently not hypoxemic . -Type 2 diabetes mellitus: hypovolemic hyponatremia: -Obesity -Fibromyalgia -Gastroesophageal reflux disease -Sleep apnea and uses CPAP machine at home Patient Condition at Discharge: Fair Plan - Discharge Summary Discharge Rx Participant: No New Discharge Prescriptions: New Dexamethasone [Decadron] 6 mg PO DAILY #7 tablet Continue Hyoscyamine Sulfate [Levbid] 0.375 mg PO BID Pregabalin [Lyrica] 200 mg PO BID Motofen 1-0.025 1 tab PO BID Insulin Glargine,Hum.rec.anlog [Basaglar Kwikpen U-100] 75 unit SQ HS Dulaglutide [Trulicity] 1.5 mg SQ SA Aspirin [[place] Aspirin EC] 81 mg PO DAILY glipiZIDE [Glucotrol] 5 mg PO BID Dapagliflozin Propanediol [Farxiga] 10 mg PO DAILY Ondansetron HCl [Zofran] 4 mg PO TID PRN PRN Reason: Nausea And Vomiting Metoprolol Succinate [Toprol XL] 50 mg PO DAILY Amitriptyline HCl [Elavil] 25 mg PO HS metFORMIN HCL [Glucophage] 1,000 mg PO BID Ondansetron [Zofran ODT] 4 mg PO Q8HR PRN #15 tab PRN Reason: Nausea Discontinued Furosemide [Lasix] 20 mg PO DAILY Potassium Chloride [Klor-Con 10] 10 meq PO DAILY Discharge Medication List Hyoscyamine Sulfate [Levbid] 0.375 mg PO BID 07/25/13 [History] Pregabalin [Lyrica] 200 mg PO BID 07/25/13 [History] Amitriptyline HCl [Elavil] 25 mg PO HS 02/05/20 [History] Aspirin [[place] Aspirin EC] 81 mg PO DAILY 02/05/20 [History] Dapagliflozin Propanediol [Farxiga] 10 mg PO DAILY 02/05/20 [History] Dulaglutide [Trulicity] 1.5 mg SQ SA 02/05/20 [History] Insulin Glargine,Hum.rec.anlog [Basaglar Kwikpen U-100] 75 unit SQ HS 02/05/20 [History] Metoprolol Succinate [Toprol XL] 50 mg PO DAILY 02/05/20 [History] Motofen 1-0.025 1 tab PO BID 02/05/20 [History] Ondansetron HCl [Zofran] 4 mg PO TID PRN 02/05/20 [History] Ondansetron [Zofran ODT] 4 mg PO Q8HR PRN #15 tab 02/05/20 [Rx] glipiZIDE [Glucotrol] 5 mg PO BID 02/05/20 [History] metFORMIN HCL [Glucophage] 1,000 mg PO BID 02/05/20 [History] Dexamethasone [Decadron] 6 mg PO DAILY #7 tablet 02/07/20 [Rx] Follow up Appointment(s)/Referral(s): Danae Greco DO [Primary Care Provider] - 3 Days Discharge Disposition: HOME SELF-CARE
[2020-02-07] MEDS ORDERED: POTASSIUM CHLORIDE ER 20 MEQ TAB.ER PO STA (11:15)
[2020-02-07 11:57] LABS: Glucose,Whole Blood 96 mg/dL (75-99)
[2020-02-07 12:30] VITALS: BP 91/49; PULSE 89; RESP 20; TEMP 99.8
--- NOTE | 2020-02-07 15:49 | PN ---
PROGRESS NOTE DATE OF SERVICE: 02/07/2020 REASON FOR FOLLOWUP: COVID-19 infection. INTERVAL HISTORY: The patient was seen early this afternoon. The patient is overall feeling better. She is breathing comfortably. Patient denies having any chest pain. No shortness of breath. No cough. No further nausea, vomiting or diarrhea. Patient was already discharged by the admitting physician and patient ready for her ride. PHYSICAL EXAMINATION: Blood pressure 106/58 with a pulse of 93, temperature 98.5, she is 95% on room air. General description is a middle-aged female, up in the bed, in no distress. RESPIRATORY SYSTEM: Unlabored breathing. EXTREMITIES: No edema of the feet. LABS: BUN of 9, creatinine 0.73. DIAGNOSTIC IMPRESSION AND PLAN: Patient with acute COVID-19 infection in this patient who has predominant gastrointestinal symptoms seemed to have responded to symptomatic treatment along with steroids and Lovenox. Prescription for has been sent by the physician. The patient advised if any worsening symptoms, need to come back to hospital right away. MMODL / IJN: [id number] /
[2020-02-08] MEDS ORDERED: Dulaglutide [Trulicity] 1.5 MG SQ SCH (09:00)
== END 2020-02-07 13:40 | disposition home or self-care (01) ==
LOC: EC 02:08 → 6NMEDSUR 04:17
PROVIDERS: ADMIT Hospitalist; ATTEND Hospitalist
DX: U07.1 COVID-19 (principal); J12.89 Other viral pneumonia; E86.0 Dehydration; E87.1 Hypo-osmolality and hyponatremia; E86.1 Hypovolemia; E11.9 Type 2 diabetes mellitus without complications; R19.7 Diarrhea, unspecified; K21.9 Gastro-esophageal reflux disease without esophagitis; M79.7 Fibromyalgia; E78.5 Hyperlipidemia, unspecified; E66.9 Obesity, unspecified; Z68.42 Body mass index [BMI] 45.0-49.9, adult; I50.9 Heart failure, unspecified; G47.30 Sleep apnea, unspecified; Z99.89 Dependence on other enabling machines and devices; K58.9 Irritable bowel syndrome, unspecified; Z90.49 Acquired absence of other specified parts of digestive tract; Z90.710 Acquired absence of both cervix and uterus; Z98.51 Tubal ligation status; F41.9 Anxiety disorder, unspecified; Z98.890 Other specified postprocedural states; Z82.49 Family history of ischemic heart disease and other diseases of the circulatory system; Z83.3 Family history of diabetes mellitus; Z79.84 Long term (current) use of oral hypoglycemic drugs; Z79.82 Long term (current) use of aspirin; Z79.899 Other long term (current) drug therapy; Z88.2 Allergy status to sulfonamides
CPT/HCPCS: 96372 ×2; 96361; 96374; 96375; 99285; 36415; 93005; 83880; 80053; 80048; 87449; 82728; 82550; 83605; 83615; 83735; 84100; 84484; 85025; 85610; 85730; 86140; 81001; 87635; 74022; G0378 ×2; J2270; J2405; J1650 ×2; J8540 ×2; C9113

== ENCOUNTER → 2021-11-18 | Outpatient (CLI) | payer BC ==
--- NOTE | 2021-11-18 10:21 | BD ---
EXAMINATION TYPE: Axial Bone Density DATE OF EXAM: 11/18/2021 COMPARISON: NONE CLINICAL HISTORY: 56 years year old Female. ICD-10 CODE: Z78.0 MENOPAUSAL STATE Height: 60.5 Weight: 213.8 FRAX RISK QUESTIONS: Alcohol (3 or more units per day): NO Family History (Parent hip fracture): NO Glucocorticoids (More than 3mos): NO History of Fracture in Adulthood: ANKLE Secondary Osteoporosis: 1. Type 1 Diabetes: NO 2. Hyperthyroidism: NO 3. Menopause before 45: YES 4. Malnutrition: NO 5. Chronic liver disease: NO Rheumatoid Arthritis: NO Current Tobacco Use: NO RISK FACTORS HISTORY OF: Hip Fracture (Right/Left): NO Spine Fracture: NO History of Wrist Fracture: NO Surgery to Spine/Hip(right/left)/Wrist (right/left): NO Family History of Osteoporosis: NO Active: NO Diet low in dairy products/other sources of calcium: YES Postmenopausal woman: YES Take estrogen and/or progesterone medications: NO Lost more than 2 inches in height since high school: NO Frequent falls: YES Poor Health: YES Hyperparathyroidism: NO Adrenal Insufficiency: NO MEDICATIONS: Prednisone or other steroids: NO Thyroid Medications: NO Osteoporosis Medications:NO Additional Medications: FUROSEMIDE, METFORMIN, POTASSIUM, HYOSCYAMINE, AMITRIPTYLINE, GLIPIZIDE, ZINC , VIT C, MULTI VIT. Additional History: POOR HISTORIAN EXAM MEASUREMENTS: Bone mineral densitometry was performed using the [employer] System. Bone mineral density as measured about the Lumbar spine is: ----- L1-L4(G/cm2): 1.190 T Score Values are as follows: ----- L1: -0.4 ----- L2: 0.6 ----- L3: 0.3 ----- L4: -0.2 ----- L1-L4: 0.1 BASELINE STUDY Bone mineral density about the R hip (g/cm2): 1.040 Bone mineral density about the L hip (g/cm2): 0.999 T Score values are as follows: -----R Neck: 0.0 -----L Neck: -0.3 -----R Total: -0.1 -----L Total: 0.6 BASELINE STUDY FRAX%s: The graph provided illustrates a 5.3% chance for a major osteoporotic fx and a 0.1% chance fo r the hips probability for fx in 10 years time. IMPRESSION: Normal (Values between +1 and -1 indicate normal bone mass). Consider repeating this study in 5 year s or sooner if there is some new clinical indication. NOTE: T-SCORE=SD OF THE YOUNG ADULT MEAN.
== END | disposition home or self-care (01) ==
LOC: RADBDWWP 08:01
PROVIDERS: ATTEND Family Medicine
DX: Z78.0 Asymptomatic menopausal state (principal)
CPT/HCPCS: 77080

== ENCOUNTER 2022-02-15 07:38 | Day surgery (SDC) | payer BC ==
[2022-02-14 10:23] VITALS: BMI 42.5
[2022-02-15 08:13] VITALS: TEMP 97.8
[2022-02-15] MEDS ORDERED: INSULIN ASPART (NovoLOG) 100 UNIT/ML VIAL SQ ONE (08:48)
[2022-02-15 08:54] LABS: Glucose,Whole Blood 305 mg/dL (70-110)
[2022-02-15] MEDS ORDERED: LIDOCAINE 2% INJ 20 MG/ML (2 ML VIAL) ONE (09:09)
[2022-02-15] MEDS ORDERED: PROPOFOL 10 MG/ML 20 ML VIAL IV ONE (09:09)
--- NOTE | 2022-02-15 09:33 | P.PCN ---
Date of Procedure: 02/15/22 Procedure(s) Performed: BRIEF HISTORY: Patient is a 56-year-old pleasant white female scheduled for an elective colonoscopy as a part of screening for colon cancer. PROCEDURE PERFORMED: Colonoscopy with snare polypectomy. PREOPERATIVE DIAGNOSIS: Screening for colon cancer. IV sedation per Anesthesia. PROCEDURE: After informed consent was obtained, the patient, was brought into the endoscopy unit. IV sedation was administered by Anesthesia under continuous monitoring. Digital rectal examination was normal. Initially the Olympus CF-160 flexible video colonoscope was then inserted in the rectum, gradually advanced into the cecum without any difficulty. Careful examination was performed as the scope was gradually being withdrawn. Ileocecal valve and the appendiceal orifice were visualized and appeared normal. Prep was excellent. Mucosa of the cecum had a 5-6 mm sessile cecal polyp that was removed by snare polypectomy. Rest of the, ascending colon, transverse colon, descending colon, sigmoid colon, and rectum appeared normal. Retroflexion was performed in the rectum and no lesions were seen. The patient tolerated the procedure well. IMPRESSION: 5-6 mm cecal polyp status post polypectomy Rest of the colon appeared normal RECOMMENDATIONS: Findings of this examination were discussed with the patient as well as a family. She was advised to follow with the biopsy results. If the biopsy results adenoma she can have a repeat colonoscopy in 5 years.
[2022-02-15 10:00] VITALS: BP 95/61; PULSE 90; RESP 16
[2022-02-15 10:13] LABS: Glucose,Whole Blood 261 mg/dL (70-110)
== END 2022-02-15 10:35 | disposition home or self-care (01) ==
LOC: ORWHC2ENDO 07:38
PROVIDERS: ATTEND Internal Medicine Gastroenterology
DX: Z12.11 Encounter for screening for malignant neoplasm of colon (principal); D12.0 Benign neoplasm of cecum; Z80.0 Family history of malignant neoplasm of digestive organs
CPT/HCPCS: 88305; 45385; J2704; J2001

== ENCOUNTER → 2022-07-05 | Outpatient (CLI) | payer BC ==
--- NOTE | 2022-07-05 09:55 | USB ---
Reason for Exam: Clinical finding. Patient History: Menarche at age 10. First Full-Term at age 17. Hysterectomy at age 35. Postmenopausal. Patient has history of breast feeding. Previous chemotherapy. Risk Values: Rylee 5 year model risk: 1.0%. NCI Lifetime model risk: 5.5%. Technique: Method: Targeted. Prior Study Comparison: 12/20/2012 Bilateral Screening Mammogram, [facility]. 09/27/2016 Bilateral Screening Mammogram, [facility]. 11/05/2021 Bilateral MG 3D screening mammo w/cad, [facility]. Findings: The area of palpable concern of the left breast, the axilla of the left breast and the retroareolar of the left breast were scanned. Targeted ultrasound palpable abnormality 9:00 position 14 cm distance from nipple shows oval 2.2 cm in length hyperechoic area with central linear hypoechoic to anechoic area extending from the dermal layer into the deeper subcutaneous tissue. A benign etiology even possibly dermatologic lesion is favored. Overall Assessment: Probably benign, BI-RAD 3 Management: Diagnostic Breast Ultrasound of the left breast in 4 months. Diagnostic Mammogram of both breasts in 4 months. Patient due for bilateral breast mammogram in 4-5 months to be back on schedule. Repeat diagnostic left breast ultrasound at that time is advised. Results were given to the patient verbally at the time of exam. Electronically signed and approved by: Edson Rojas M.D.
--- NOTE | 2022-07-05 10:47 | MM ---
Reason for Exam: Clinical finding. Last screening mammogram was performed 8 month(s) ago. Indicated Problems: Lump or thickening of the left side (size 5-6) for 2 Week(s). Patient History: Menarche at age 10. First Full-Term at age 17. Hysterectomy at age 35. Postmenopausal. Patient has history of breast feeding. Previous chemotherapy. Risk Values: Rylee 5 year model risk: 1.0%. NCI Lifetime model risk: 5.5%. Prior Study Comparison: 12/20/2012 Bilateral Screening Mammogram, [facility]. 09/27/2016 Bilateral Screening Mammogram, [facility]. 11/05/2021 Bilateral MG 3D screening mammo w/cad, [facility]. Tissue Density: Left: There are scattered fibroglandular densities. Findings: Analyzed By CAD. Marker placed at the site of palpable abnormality marked medial inferior aspect. Benign left axillary lymph nodes are redemonstrated. No obvious new mass identified. Overall Assessment: Incomplete: need additional imaging evaluation, BI-RAD 0 Management: Diagnostic Breast Ultrasound of the left breast. Targeted ultrasound left breast palpable. Results were given to the patient verbally at the time of exam. Electronically signed and approved by: Edson Rojas M.D.
== END | disposition home or self-care (01) ==
LOC: RADMAMWWP 08:35
PROVIDERS: ATTEND Family Medicine
DX: N63.20 Unspecified lump in the left breast, unspecified quadrant (principal); Z78.0 Asymptomatic menopausal state
CPT/HCPCS: 77061; 77065

== ENCOUNTER → 2023-02-08 | Outpatient (CLI) | payer BC ==
--- NOTE | 2023-02-08 10:50 | MM ---
Reason for Exam: Follow-up at short interval from prior study. Last mammogram was performed 1 year(s) and 3 month(s) ago. Patient History: Menarche at age 10. First Full-Term at age 17. Hysterectomy at age 35. Postmenopausal. Patient has history of breast feeding. Previous chemotherapy. Risk Values: Rylee 5 year model risk: 1.0%. NCI Lifetime model risk: 5.5%. Prior Study Comparison: 12/20/2012 Bilateral Screening Mammogram, [facility]. 09/27/2016 Bilateral Screening Mammogram, [facility]. 11/05/2021 Bilateral MG 3D screening mammo w/cad, [facility]. 07/05/2022 Left MG 3D diag mammo w/cad , [facility]. Tissue Density: There are scattered fibroglandular densities. Findings: Analyzed By CAD. Chronic nodularity upper outer quadrant right breast. No significant change from prior exam. Overall Assessment: Benign, BI-RAD 2 Management: Screening Mammogram of both breasts in 1 year. If there is any recurrence of a palpable abnormality, the patient can return to be scanned. Results were given to the patient verbally at the time of exam. Patient should continue monthly self-breast exams. A clinical breast exam by your physician is recommended on an annual basis. This exam should not preclude additional follow-up of suspicious palpable abnormalities. Note on Rylee scores and lifetime risk: 1. A Rylee score greater than 3% is considered moderate risk. If this is the case, consider specialist referral to assess eligibility for a risk reducing agent. 2. If overall lifetime risk for the development of breast cancer is 20% or higher, the patient may qualify for future screening with alternating mammogram and breast MRI. Electronically signed and approved by: Yana Rievra M.D. Radiologist
== END | disposition home or self-care (01) ==
LOC: RADMAMWWP 09:42
PROVIDERS: ATTEND Family Medicine
DX: R92.323 Mammographic fibroglandular density, bilateral breasts (principal); Z78.0 Asymptomatic menopausal state
CPT/HCPCS: 77062; 77066